=== PATIENT | male | born 1955 | race African-American/Black ===

== ENCOUNTER 2019-07-07 18:35 | Emergency (ER) | payer MEDICAID, OTHER ==
[~2019-07-07] VITALS: Ht 165.1 cm; Wt 80.0 kg
[~2019-07-07 18:35] MED LIST: ISOS10TA2 GT; KALET2 PO; KDUR10 PO; METO25TA6 PO; PREN-88 PO; RALT400T PO; TRUV PO; [UNRECOGNIZED DRUG - CODE] PO; [UNRECOGNIZED DRUG - OTHER]
[2019-07-07 18:47] VITALS: BP 146/114
[2019-07-07] MEDS ORDERED: IBUPROFEN 600MG TABLET PO ONE (19:15)
== END 2019-07-07 20:38 | disposition home or self-care (01) ==
LOC: ER 18:35
DX: S93.491A Sprain of other ligament of right ankle, initial encounter (principal); W01.0XXA Fall on same level from slipping, tripping and stumbling without subsequent striking against object, initial encounter; Y93.89 Activity, other specified; Y92.018 Other place in single-family (private) house as the place of occurrence of the external cause
CPT/HCPCS: 73610; 99283

== ENCOUNTER 2019-09-04 11:36 | Inpatient (IN) | payer MEDICAID ==
[~2019-09-04] VITALS: Ht 180.3 cm; Wt 70.8 kg
[2019-09-04] MEDS ORDERED: SODIUM CHLORIDE 0.9% 1,000 ML IV ONE (12:01)
[2019-09-04] MEDS ORDERED: LEVETIRACETAM 1000MG/100ML 100 ML IV ONE (12:15)
[2019-09-04 12:39] LABS: BASOPHILS % 0.3 % (0.0-2.0); EOSINOPHILS % 3.3 % (0.0-5.0); HEMATOCRIT. 46.9 % (42.0-52.0); HEMOGLOBIN. 15.9 g/dL (14.0-18.0); LYMPHOCYTES % 37.8 % (20.0-50.0); MEAN CORPUSCULAR HEMOGLOBIN 30.8 pg (28.0-32.0); MEAN CORPUSCULAR VOLUME 90.7 fL (80.0-94.0); MEAN PLATELET VOLUME 9.8 fl (7.4-10.4); MONOCYTES % 8.9 % (2.0-8.0); NEUTROPHILS % 49.7 % (40.0-76.0); PLATELET 213 x1000/uL (130-400); RED BLOOD CELL COUNT 5.17 mill/uL (4.7-6.1); RED CELL DISTRIBUTION WIDTH 13.6 % (11.6-14.6)
[2019-09-04 12:40] LABS: CHLORIDE 109 mEq/L (98-107)
[2019-09-04 12:44] LABS: ETHANOL BLOOD < 10 mg/dL
[2019-09-04 13:02] LABS: CREATINE KINASE 68 IU/L (39-308)
[2019-09-04] MEDS ORDERED: ACETAMINOPHEN 325MG TABLET PO PRN ×2 (15:00)
[2019-09-04] MEDS ORDERED: ONDANSETRON HCL 4MG/2ML INJ IV PRN (15:00)
[2019-09-04] MEDS ORDERED: LORAZEPAM 2MG/ML CPJ IV PRN (15:00)
[2019-09-04] MEDS ORDERED: IPRATROPIUM/ALBUTEROL 0.5-3(2.5)MG/3ML NEB ORI PRN (15:00)
[2019-09-04] MEDS ORDERED: DOCUSATE SODIUM 100MG CAPSULE PO PRN (15:00)
[2019-09-04] MEDS ORDERED: CLONIDINE 0.1MG TABLET PO PRN (15:00)
[2019-09-04] MEDS ORDERED: NITROGLYCERIN 0.4MG TABLET SL SL PRN (15:00)
[2019-09-04] MEDS ORDERED: DEXT 5%/LACTATED RINGERS 1,000 ML IV SCH (15:00)
[2019-09-04 15:17] LABS: CLARITY URINE CLEAR (CLEAR); COLOR URINE YELLOW (YELLOW); KETONES URINE NEGATIVE (NEGATIVE); LEUKOCYTE ESTERASE URINE NEGATIVE (NEGATIVE); NITRITE URINE NEGATIVE (NEGATIVE); OCCULT BLOOD URINE TRACE (NEGATIVE); PH URINE 6.5 (4.5-8.0); PROTEIN URINE NEGATIVE (NEGATIVE); UROBILINOGEN URINE 0.2 E.U./dL (0.2-1.0)
[2019-09-04 15:37] LABS: *BARBITURATES SCREEN URINE NEGATIVE (NEGATIVE); *BENZODIAZEPINES SCREEN URINE NEGATIVE (NEGATIVE)
[2019-09-04 15:38] LABS: *AMPHETAMINES SCREEN URINE NEGATIVE (NEGATIVE); *COCAINE SCREEN URINE NEGATIVE (NEGATIVE); CANNABINOID URINE SCREEN PRESUMTIVE POSITIVE (NEGATIVE); METHADONE URINE SCREEN NEGATIVE (NEGATIVE); OPIATES URINE SCREEN NEGATIVE (NEGATIVE); PHENCYCLIDINE URINE SCREEN NEGATIVE (NEGATIVE)
[2019-09-04] MEDS: DEXT 5%/LACTATED RINGERS 1,000 ML IV SCH (16:45)
[2019-09-04] MEDS ORDERED: MORPHINE SULFATE 2 MG/ML CPJ (NOT FOR IM USE) IV PRN (16:45)
[2019-09-04] MEDS ORDERED: NICARDIPINE 100 MG in SODIUM CHLORIDE 0.9% 60 ML IV PRN (17:00)
[2019-09-04] MEDS: LEVETIRACETAM 500MG PREMIX 100 ML IV SCH ×2 (21:01→22:39)
[2019-09-05] VITALS (64 sets, daily range): BP systolic 94–191; BP diastolic 37–142
[2019-09-05] MEDS: DEXT 5%/LACTATED RINGERS 1,000 ML IV SCH (00:24)
[2019-09-05] MEDS: AMLODIPINE 2.5MG TABLET PO SCH (09:59)
[2019-09-05] MEDS: PANTOPRAZOLE SODIUM 40 MG/VIAL IV SCH (09:59)
[2019-09-05] MEDS: LEVETIRACETAM 500MG PREMIX 100 ML IV SCH ×2 (11:21→20:55)
[2019-09-05] MEDS ORDERED: DOLU1TAB MT (14:33)
[2019-09-05] MEDS ORDERED: ATOR-2 MT (14:33)
[2019-09-05] MEDS ORDERED: AMLO10TA80 MT (14:34)
[2019-09-05] MEDS: ATORVASTATIN CALCIUM 10MG TABLET PO SCH (20:56)
[2019-09-06] MEDS: DEXT 5%/LACTATED RINGERS 1,000 ML IV SCH ×2 (02:05→19:00)
[2019-09-06 04:00] VITALS: BP 121/86
[2019-09-06 08:00] VITALS: BP 122/76
[2019-09-06] MEDS: PANTOPRAZOLE SODIUM 40 MG/VIAL IV SCH (08:36)
[2019-09-06] MEDS: LEVETIRACETAM 500MG PREMIX 100 ML IV SCH ×2 (08:36→20:50)
[2019-09-06] MEDS ORDERED: BUPR-43 PO (14:49)
[2019-09-06] MEDS ORDERED: BICT1TAB PO (14:49)
[2019-09-06] MEDS ORDERED: EMTR1TAB12 MT (14:49)
[2019-09-06] MEDS ORDERED: CHOL200077 MT (14:49)
[2019-09-06] MEDS ORDERED: TOPUD MT (14:49)
[2019-09-06] MEDS ORDERED: DARU1TAB MT (14:49)
[2019-09-06] MEDS ORDERED: DOLU1TAB MT (14:49)
[2019-09-06] MEDS: JULUCA PO SCH (18:05)
[2019-09-06] MEDS: [UNRECOGNIZED DRUG - OTHER] PO SCH (18:07)
[2019-09-06] MEDS: PREZCOBIX PO SCH (18:08)
[2019-09-06 20:00] VITALS: BP 147/97
[2019-09-06] MEDS: ATORVASTATIN CALCIUM 10MG TABLET PO SCH (20:48)
[2019-09-06] MEDS: AMLODIPINE 2.5MG TABLET PO SCH (20:48)
[2019-09-07] VITALS: BP 154/92
[2019-09-07 04:00] VITALS: BP 122/70
[2019-09-07 08:00] VITALS: BP 102/67
[2019-09-07] MEDS: AMLODIPINE 2.5MG TABLET PO SCH ×2 (09:00→21:04)
[2019-09-07] MEDS: PANTOPRAZOLE SODIUM 40 MG/VIAL IV SCH (09:23)
[2019-09-07] MEDS: LEVETIRACETAM 500MG PREMIX 100 ML IV SCH ×2 (09:23→21:04)
[2019-09-07] MEDS: PREZCOBIX PO SCH (09:24)
[2019-09-07] MEDS: JULUCA PO SCH (09:24)
[2019-09-07] MEDS: [UNRECOGNIZED DRUG - OTHER] PO SCH (09:25)
[2019-09-07 12:00] VITALS: BP 135/87
[2019-09-07] MEDS: DEXT 5%/LACTATED RINGERS 1,000 ML IV SCH (12:12)
[2019-09-07 16:00] VITALS: BP 141/88
[2019-09-07] MEDS ORDERED: IOHEXOL-350 100 ML BOTTLE ONE (18:35)
[2019-09-07 20:00] VITALS: BP 141/85
[2019-09-07] MEDS: ATORVASTATIN CALCIUM 10MG TABLET PO SCH (21:04)
[2019-09-07] MEDS: FAMOTIDINE 20MG TABLET PO SCH (21:04)
[2019-09-08] VITALS: BP 147/93
[2019-09-08] MEDS: DEXT 5%/LACTATED RINGERS 1,000 ML IV SCH ×2 (01:29→20:09)
[2019-09-08 04:00] VITALS: BP 134/86
[2019-09-08 08:00] VITALS: BP 112/82
[2019-09-08] MEDS: LEVETIRACETAM 500MG PREMIX 100 ML IV SCH ×2 (08:04→21:04)
[2019-09-08] MEDS: FAMOTIDINE 20MG TABLET PO SCH ×2 (08:04→21:04)
[2019-09-08] MEDS: AMLODIPINE 2.5MG TABLET PO SCH ×2 (08:04→21:05)
[2019-09-08] MEDS: JULUCA PO SCH (09:00)
[2019-09-08] MEDS: PREZCOBIX PO SCH (09:00)
[2019-09-08] MEDS: [UNRECOGNIZED DRUG - OTHER] PO SCH (09:00)
[2019-09-08 16:00] VITALS: BP 148/78
[2019-09-08 20:00] VITALS: BP 132/75
[2019-09-08] MEDS: ATORVASTATIN CALCIUM 10MG TABLET PO SCH (21:04)
[2019-09-09] VITALS: BP 157/88
[2019-09-09 04:00] VITALS: BP 156/84
[2019-09-09 08:00] VITALS: BP 127/85
[2019-09-09] MEDS: LEVETIRACETAM 500MG PREMIX 100 ML IV SCH ×2 (09:45→21:47)
[2019-09-09] MEDS: AMLODIPINE 2.5MG TABLET PO SCH ×2 (09:46→22:12)
[2019-09-09] MEDS: JULUCA PO SCH (09:47)
[2019-09-09] MEDS: PREZCOBIX PO SCH (09:47)
[2019-09-09] MEDS: [UNRECOGNIZED DRUG - OTHER] PO SCH (09:47)
[2019-09-09] MEDS: DEXT 5%/LACTATED RINGERS 1,000 ML IV SCH (09:48)
[2019-09-09] MEDS: FAMOTIDINE 20MG TABLET PO SCH ×2 (09:59→22:15)
[2019-09-09 12:00] VITALS: BP 115/81
[2019-09-09 16:00] VITALS: BP_SYST 133; BP_SYST 166; BP_DIAS 67; BP_DIAS 89
[2019-09-09 20:00] VITALS: BP 124/87
[2019-09-09] MEDS: ATORVASTATIN CALCIUM 10MG TABLET PO SCH (22:12)
[2019-09-10] VITALS (7 sets, daily range): BP systolic 122–143; BP diastolic 77–109
[2019-09-10] MEDS: DEXT 5%/LACTATED RINGERS 1,000 ML IV SCH (04:45)
[2019-09-10 06:48] LABS: CHLORIDE 107 mEq/L (98-107)
[2019-09-10 06:51] LABS: BASOPHILS % 0.7 % (0.0-2.0); EOSINOPHILS % 2.4 % (0.0-5.0); HEMATOCRIT. 45.8 % (42.0-52.0); HEMOGLOBIN. 15.7 g/dL (14.0-18.0); LYMPHOCYTES % 39.3 % (20.0-50.0); MEAN CORPUSCULAR HEMOGLOBIN 31.1 pg (28.0-32.0); MEAN CORPUSCULAR VOLUME 90.5 fL (80.0-94.0); MEAN PLATELET VOLUME 10.1 fl (7.4-10.4); MONOCYTES % 7.8 % (2.0-8.0); NEUTROPHILS % 49.8 % (40.0-76.0); PLATELET 175 x1000/uL (130-400); RED BLOOD CELL COUNT 5.06 mill/uL (4.7-6.1); RED CELL DISTRIBUTION WIDTH 13.4 % (11.6-14.6)
[2019-09-10 06:53] LABS: PHOSPHORUS 3.3 mg/dL (2.5-4.9)
[2019-09-10 06:54] LABS: TOTAL IRON BINDING CAPACITY 333 ug/dL (250-450)
[2019-09-10 07:02] LABS: FOLIC ACID (FOLATE) SERUM 8.1 ng/mL (>5.38)
[2019-09-10] MEDS: JULUCA PO SCH (10:29)
[2019-09-10] MEDS: [UNRECOGNIZED DRUG - OTHER] PO SCH (10:29)
[2019-09-10] MEDS: PREZCOBIX PO SCH (10:30)
[2019-09-10] MEDS: AMLODIPINE 2.5MG TABLET PO SCH ×2 (10:30→21:35)
[2019-09-10] MEDS: FAMOTIDINE 20MG TABLET PO SCH ×2 (10:30→21:34)
[2019-09-10] MEDS: LEVETIRACETAM 500MG PREMIX 100 ML IV SCH ×2 (10:31→21:34)
[2019-09-10] MEDS ORDERED: MAGNESIUM OXIDE 400MG TABLET PO SCH (15:00)
[2019-09-10] MEDS: ATORVASTATIN CALCIUM 10MG TABLET PO SCH (21:34)
[2019-09-13 13:06] LABS: 25-HYDROXY VITAMIN D3 9.3 ng/mL (.)
== END 2019-09-10 22:40 | DRG 44 ==
LOC: ER 11:56 → EDBEDREQ 12:51 → MICUSO 14:56 → EDBEDREQTM 15:08 → EDBEDREQSVC 15:08 → EDBEDREQ 15:08 → CVICU 09-05 → 5WST 09-05 23:27
PROVIDERS: ADMIT Internal Medicine; ATTEND Internal Medicine
DX: I61.8 Other nontraumatic intracerebral hemorrhage (principal); I63.81 Other cerebral infarction due to occlusion or stenosis of small artery; G92 Toxic encephalopathy; G82.50 Quadriplegia, unspecified; R13.10 Dysphagia, unspecified; I10 Essential (primary) hypertension; E11.9 Type 2 diabetes mellitus without complications; F12.90 Cannabis use, unspecified, uncomplicated; R47.01 Aphasia; G40.909 Epilepsy, unspecified, not intractable, without status epilepticus; R26.9 Unspecified abnormalities of gait and mobility; R00.1 Bradycardia, unspecified; R47.1 Dysarthria and anarthria; I25.2 Old myocardial infarction; Z82.49 Family history of ischemic heart disease and other diseases of the circulatory system; Z71.51 Drug abuse counseling and surveillance of drug abuser; Z79.899 Other long term (current) drug therapy
CPT/HCPCS: 36415; 70496; 70551; 71045; 80053; 80061; 80305; 80320; 81003; 82306; 82550; 82607; 82746; 82962; 83036; 83540; 83550; 83735; 83880; 84100; 84443; 84484; 85025; 92523; 92610; 93005; 93306; 93880; 93970; 97116; 97162; 97166; 97530; 97535; 99291; C9113; J1953; J3490; J7030; J7050; J7121; Q9967; G0480

== ENCOUNTER 2019-09-10 22:40 | Inpatient (IN) | payer MEDICAID ==
[~2019-09-10] VITALS: Ht 180.3 cm; Wt 70.8 kg
[2019-09-10 22:40] VITALS: BP 143/86
[~2019-09-10 22:40] MED LIST changes: +AMLO10TA80 MT; +ATOR-2 MT; +BICT1TAB PO; +BUPR-43 PO; +CHOL200077 MT; +DARU1TAB MT; +DOLU1TAB MT; +EMTR1TAB12 MT; +TOPUD MT
[2019-09-10 23:00] VITALS: BP 143/86
[2019-09-11] MEDS ORDERED: CLONIDINE 0.1MG TABLET PO PRN
[2019-09-11] MEDS ORDERED: IPRATROPIUM/ALBUTEROL 0.5-3(2.5)MG/3ML NEB HHN PRN
[2019-09-11] MEDS ORDERED: ONDANSETRON HCL 4MG TABLET PO PRN
[2019-09-11] MEDS ORDERED: NITROGLYCERIN 0.4MG TABLET SL SL PRN
[2019-09-11] MEDS ORDERED: ACETAMINOPHEN 325MG TABLET PO PRN ×2
[2019-09-11 06:26] LABS: CHLORIDE 107 mEq/L (98-107)
[2019-09-11 06:27] LABS: HEMATOCRIT. 46.9 % (42.0-52.0); HEMOGLOBIN. 15.8 g/dL (14.0-18.0); MEAN CORPUSCULAR HEMOGLOBIN 30.7 pg (28.0-32.0); MEAN CORPUSCULAR VOLUME 91.1 fL (80.0-94.0); MEAN PLATELET VOLUME 9.3 fl (7.4-10.4); PLATELET 194 x1000/uL (130-400); RED BLOOD CELL COUNT 5.15 mill/uL (4.7-6.1); RED CELL DISTRIBUTION WIDTH 13.2 % (11.6-14.6)
[2019-09-11] MEDS: MAGNESIUM OXIDE 400MG TABLET PO SCH ×2 (08:59→20:40)
[2019-09-11] MEDS: FAMOTIDINE 20MG TABLET PO SCH ×2 (08:59→20:40)
[2019-09-11] MEDS ORDERED: NON FORMULARY PATIENT HOME MED XX SCH ×2 (09:00)
[2019-09-11] MEDS: LEVETIRACETAM 500MG TABLET PO SCH ×2 (09:00→20:40)
[2019-09-11] MEDS ORDERED: NON FORMULARY PATIENT HOME MED PO SCH (09:00)
[2019-09-11] MEDS: AMLODIPINE 2.5MG TABLET PO SCH (09:00)
[2019-09-11] MEDS: JULUCA PO SCH (10:13)
[2019-09-11] MEDS: PREZCOBIX PO SCH (10:14)
[2019-09-11] MEDS: BIKTARVY PO SCH (10:14)
[2019-09-11] MEDS: LACTULOSE 20G/30ML UDC PO SCH ×3 (13:07→20:00)
[2019-09-11 20:00] VITALS: BP 120/80
[2019-09-11 20:36] LABS: ATYPICAL LYMPHOCYTES 9; NUCLEATED RED BLOOD CELLS 3 /100 WBC
[2019-09-11 20:37] LABS: PLATELET ESTIMATE NORMAL
[2019-09-11] MEDS: ATORVASTATIN CALCIUM 10MG TABLET PO SCH (20:40)
[2019-09-12 08:17] VITALS: BP 105/60
[2019-09-12] MEDS: AMLODIPINE 2.5MG TABLET PO SCH (09:00)
[2019-09-12] MEDS: MAGNESIUM OXIDE 400MG TABLET PO SCH ×2 (09:16→21:24)
[2019-09-12] MEDS: LEVETIRACETAM 500MG TABLET PO SCH ×2 (09:16→21:23)
[2019-09-12] MEDS: PREZCOBIX PO SCH (09:17)
[2019-09-12] MEDS: BIKTARVY PO SCH (09:17)
[2019-09-12] MEDS: JULUCA PO SCH (09:17)
[2019-09-12] MEDS: FAMOTIDINE 20MG TABLET PO SCH ×2 (09:17→21:23)
[2019-09-12] MEDS: NYSTATIN 100,000 UNITS/ML 5ML UDC SSW SCH (16:56)
[2019-09-12 20:00] VITALS: BP 141/92
[2019-09-12] MEDS: ATORVASTATIN CALCIUM 10MG TABLET PO SCH (21:24)
[2019-09-13] MEDS: NYSTATIN 100,000 UNITS/ML 5ML UDC SSW SCH ×4 (00:46→17:24)
[2019-09-13 08:00] VITALS: BP 103/60
[2019-09-13] MEDS: FAMOTIDINE 20MG TABLET PO SCH ×2 (10:24→22:31)
[2019-09-13] MEDS: DOCUSATE SODIUM 100MG CAPSULE PO PRN (10:24)
[2019-09-13] MEDS: LEVETIRACETAM 500MG TABLET PO SCH ×2 (10:24→22:32)
[2019-09-13] MEDS: AMLODIPINE 2.5MG TABLET PO SCH (10:25)
[2019-09-13] MEDS: MAGNESIUM OXIDE 400MG TABLET PO SCH ×2 (10:30→22:31)
[2019-09-13] MEDS: JULUCA PO SCH (10:33)
[2019-09-13] MEDS: PREZCOBIX PO SCH (10:34)
[2019-09-13] MEDS: BIKTARVY PO SCH (10:34)
[2019-09-13 20:00] VITALS: BP 130/85
[2019-09-13] MEDS: ATORVASTATIN CALCIUM 10MG TABLET PO SCH (22:32)
[2019-09-14] MEDS: NYSTATIN 100,000 UNITS/ML 5ML UDC SSW SCH ×4 (00:21→17:10)
[2019-09-14 07:15] LABS: BASOPHILS % 0.4 % (0.0-2.0); EOSINOPHILS % 1.9 % (0.0-5.0); HEMATOCRIT. 48.6 % (42.0-52.0); HEMOGLOBIN. 16.4 g/dL (14.0-18.0); LYMPHOCYTES % 42.1 % (20.0-50.0); MEAN CORPUSCULAR HEMOGLOBIN 30.6 pg (28.0-32.0); MEAN CORPUSCULAR VOLUME 90.9 fL (80.0-94.0); MEAN PLATELET VOLUME 9.4 fl (7.4-10.4); MONOCYTES % 8.8 % (2.0-8.0); NEUTROPHILS % 46.8 % (40.0-76.0); PLATELET 223 x1000/uL (130-400); RED BLOOD CELL COUNT 5.35 mill/uL (4.7-6.1); RED CELL DISTRIBUTION WIDTH 13.4 % (11.6-14.6)
[2019-09-14 07:25] LABS: CHLORIDE 104 mEq/L (98-107)
[2019-09-14 08:14] VITALS: BP 138/88
[2019-09-14] MEDS: FAMOTIDINE 20MG TABLET PO SCH ×2 (09:59→21:56)
[2019-09-14] MEDS: LEVETIRACETAM 500MG TABLET PO SCH ×2 (09:59→21:56)
[2019-09-14] MEDS: AMLODIPINE 2.5MG TABLET PO SCH (10:00)
[2019-09-14] MEDS: MAGNESIUM OXIDE 400MG TABLET PO SCH ×2 (10:00→21:55)
[2019-09-14] MEDS: PREZCOBIX PO SCH (10:05)
[2019-09-14] MEDS: BIKTARVY PO SCH (10:05)
[2019-09-14] MEDS: JULUCA PO SCH (10:05)
[2019-09-14] MEDS ORDERED: BISACODYL 10MG SUPP PR NR (12:00)
[2019-09-14] MEDS: LACTULOSE 20G/30ML UDC PO SCH ×3 (12:03→17:10)
[2019-09-14 20:00] VITALS: BP 116/89
[2019-09-14] MEDS: ATORVASTATIN CALCIUM 10MG TABLET PO SCH (21:55)
[2019-09-15] MEDS: NYSTATIN 100,000 UNITS/ML 5ML UDC SSW SCH ×4 (05:28→17:29)
[2019-09-15 08:00] VITALS: BP 130/89
[2019-09-15] MEDS: LEVETIRACETAM 500MG TABLET PO SCH ×3 (08:48→22:03)
[2019-09-15] MEDS: MAGNESIUM OXIDE 400MG TABLET PO SCH ×2 (08:48→21:52)
[2019-09-15] MEDS: FAMOTIDINE 20MG TABLET PO SCH ×2 (08:48→21:52)
[2019-09-15] MEDS: BIKTARVY PO SCH (08:49)
[2019-09-15] MEDS: AMLODIPINE 2.5MG TABLET PO SCH (08:49)
[2019-09-15] MEDS: PREZCOBIX PO SCH (08:50)
[2019-09-15] MEDS: JULUCA PO SCH (08:50)
[2019-09-15 20:00] VITALS: BP 119/83
[2019-09-15] MEDS: ATORVASTATIN CALCIUM 10MG TABLET PO SCH (21:52)
[2019-09-16] MEDS: NYSTATIN 100,000 UNITS/ML 5ML UDC SSW SCH ×4 (00:39→17:06)
[2019-09-16 08:00] VITALS: BP 116/81
[2019-09-16 08:37] VITALS: BP 106/81
[2019-09-16] MEDS: MAGNESIUM OXIDE 400MG TABLET PO SCH ×2 (08:43→21:19)
[2019-09-16] MEDS: AMLODIPINE 2.5MG TABLET PO SCH (08:44)
[2019-09-16] MEDS: FAMOTIDINE 20MG TABLET PO SCH ×2 (08:45→21:19)
[2019-09-16] MEDS: BIKTARVY PO SCH (08:45)
[2019-09-16] MEDS: PREZCOBIX PO SCH (08:45)
[2019-09-16] MEDS: LEVETIRACETAM 500MG TABLET PO SCH ×2 (08:45→21:19)
[2019-09-16] MEDS: JULUCA PO SCH (08:45)
[2019-09-16 20:00] VITALS: BP 111/84
[2019-09-16] MEDS: ATORVASTATIN CALCIUM 10MG TABLET PO SCH (21:19)
[2019-09-17] MEDS: NYSTATIN 100,000 UNITS/ML 5ML UDC SSW SCH ×5 (00:11→23:09)
[2019-09-17 08:00] VITALS: BP 130/82
[2019-09-17] MEDS: AMLODIPINE 2.5MG TABLET PO SCH (08:49)
[2019-09-17] MEDS: MAGNESIUM OXIDE 400MG TABLET PO SCH ×2 (08:49→20:48)
[2019-09-17] MEDS: LEVETIRACETAM 500MG TABLET PO SCH ×2 (08:49→20:48)
[2019-09-17] MEDS: JULUCA PO SCH (08:50)
[2019-09-17] MEDS: FAMOTIDINE 20MG TABLET PO SCH ×2 (12:21→20:48)
[2019-09-17 20:00] VITALS: BP 131/72
[2019-09-17] MEDS: ATORVASTATIN CALCIUM 10MG TABLET PO SCH (20:48)
[2019-09-18] MEDS: DOCUSATE SODIUM 100MG CAPSULE PO PRN (05:04)
[2019-09-18] MEDS: NYSTATIN 100,000 UNITS/ML 5ML UDC SSW SCH ×3 (05:05→17:35)
[2019-09-18 05:08] LABS: 25-HYDROXY VITAMIN D3 9.7 ng/mL (.)
[2019-09-18 07:28] LABS: BASOPHILS % 0.5 % (0.0-2.0); EOSINOPHILS % 1.6 % (0.0-5.0); HEMATOCRIT. 46.8 % (42.0-52.0); HEMOGLOBIN. 15.8 g/dL (14.0-18.0); MEAN CORPUSCULAR HEMOGLOBIN 30.9 pg (28.0-32.0); MEAN CORPUSCULAR VOLUME 91.4 fL (80.0-94.0); MONOCYTES % 9.4 % (2.0-8.0); NEUTROPHILS % 48.5 % (40.0-76.0); PLATELET 223 x1000/uL (130-400); RED BLOOD CELL COUNT 5.12 mill/uL (4.7-6.1); RED CELL DISTRIBUTION WIDTH 13.3 % (11.6-14.6)
[2019-09-18 07:43] LABS: CHLORIDE 104 mEq/L (98-107)
[2019-09-18 08:00] VITALS: BP 125/87
[2019-09-18] MEDS: LEVETIRACETAM 500MG TABLET PO SCH ×2 (09:30→20:43)
[2019-09-18] MEDS: MAGNESIUM OXIDE 400MG TABLET PO SCH ×2 (09:30→20:43)
[2019-09-18] MEDS: AMLODIPINE 2.5MG TABLET PO SCH (09:31)
[2019-09-18] MEDS: FAMOTIDINE 20MG TABLET PO SCH ×2 (09:31→20:43)
[2019-09-18] MEDS: JULUCA PO SCH (09:48)
[2019-09-18 11:14] VITALS: BP 125/87
[2019-09-18] MEDS ORDERED: NA PHOS,M-B/NA PHOS,DI-BA ENEMA 118ML PR PRN (17:30)
[2019-09-18] MEDS: BISACODYL 5MG TABLET PO PRN (17:35)
[2019-09-18] MEDS: ERGOCALCIFEROL 50000UNITS CAPSULE PO SCH ×3 (17:45→19:04)
[2019-09-18] MEDS: LACTULOSE 20G/30ML UDC PO PRN (18:23)
[2019-09-18 20:00] VITALS: BP 124/86
[2019-09-18] MEDS: ATORVASTATIN CALCIUM 10MG TABLET PO SCH (20:43)
[2019-09-19] MEDS: NYSTATIN 100,000 UNITS/ML 5ML UDC SSW SCH ×4 (05:41→18:00)
[2019-09-19 07:30] VITALS: BP 112/79
[2019-09-19] MEDS: MAGNESIUM OXIDE 400MG TABLET PO SCH ×2 (08:33→21:13)
[2019-09-19] MEDS: LEVETIRACETAM 500MG TABLET PO SCH ×2 (08:33→21:13)
[2019-09-19] MEDS: FAMOTIDINE 20MG TABLET PO SCH ×2 (08:34→21:13)
[2019-09-19] MEDS: AMLODIPINE 2.5MG TABLET PO SCH (08:34)
[2019-09-19] MEDS: JULUCA PO SCH (08:35)
[2019-09-19] MEDS: LACTULOSE 20G/30ML UDC PO PRN (16:13)
[2019-09-19 20:00] VITALS: BP 125/84
[2019-09-19] MEDS: ATORVASTATIN CALCIUM 10MG TABLET PO SCH (21:13)
[2019-09-20] MEDS ORDERED: NYSTATIN 100,000 UNITS/ML 5ML UDC SSW SCH
[2019-09-20 07:21] LABS: BASOPHILS % 0.4 % (0.0-2.0); HEMATOCRIT. 45.9 % (42.0-52.0); HEMOGLOBIN. 15.5 g/dL (14.0-18.0); LYMPHOCYTES % 40.3 % (20.0-50.0); MEAN CORPUSCULAR HEMOGLOBIN 30.7 pg (28.0-32.0); MEAN CORPUSCULAR VOLUME 91.1 fL (80.0-94.0); MEAN PLATELET VOLUME 9.8 fl (7.4-10.4); MONOCYTES % 9.2 % (2.0-8.0); NEUTROPHILS % 48.1 % (40.0-76.0); PLATELET 227 x1000/uL (130-400); RED BLOOD CELL COUNT 5.04 mill/uL (4.7-6.1); RED CELL DISTRIBUTION WIDTH 13.1 % (11.6-14.6)
[2019-09-20 07:28] LABS: CHLORIDE 102 mEq/L (98-107)
[2019-09-20 08:20] VITALS: BP 137/93
[2019-09-20] MEDS: AMLODIPINE 2.5MG TABLET PO SCH (08:55)
[2019-09-20] MEDS: LEVETIRACETAM 500MG TABLET PO SCH ×2 (08:55→21:40)
[2019-09-20] MEDS: FAMOTIDINE 20MG TABLET PO SCH ×2 (08:55→21:41)
[2019-09-20] MEDS: MAGNESIUM OXIDE 400MG TABLET PO SCH ×2 (08:55→21:40)
[2019-09-20] MEDS: JULUCA PO SCH (08:56)
[2019-09-20] MEDS: LACTULOSE 20G/30ML UDC PO SCH ×3 (13:00→17:56)
[2019-09-20 20:00] VITALS: BP 136/76
[2019-09-20] MEDS: ATORVASTATIN CALCIUM 10MG TABLET PO SCH (21:40)
[2019-09-21 08:00] VITALS: BP 140/99
[2019-09-21 08:01] VITALS: BP 140/99
[2019-09-21] MEDS: MAGNESIUM OXIDE 400MG TABLET PO SCH ×2 (08:22→21:44)
[2019-09-21] MEDS: FAMOTIDINE 20MG TABLET PO SCH ×2 (08:22→21:44)
[2019-09-21] MEDS: JULUCA PO SCH (08:23)
[2019-09-21] MEDS: LEVETIRACETAM 500MG TABLET PO SCH ×2 (08:23→21:44)
[2019-09-21] MEDS: AMLODIPINE 2.5MG TABLET PO SCH (08:23)
[2019-09-21 20:00] VITALS: BP 113/74
[2019-09-21] MEDS: ATORVASTATIN CALCIUM 10MG TABLET PO SCH (21:44)
[2019-09-22] MEDS: BISACODYL 5MG TABLET PO PRN (06:05)
[2019-09-22 08:08] VITALS: BP_SYST 91
[2019-09-22] MEDS: JULUCA PO SCH (09:50)
[2019-09-22] MEDS: LEVETIRACETAM 500MG TABLET PO SCH ×2 (09:51→21:51)
[2019-09-22] MEDS: FAMOTIDINE 20MG TABLET PO SCH ×2 (09:51→21:51)
[2019-09-22] MEDS: MAGNESIUM OXIDE 400MG TABLET PO SCH ×2 (09:51→21:50)
[2019-09-22] MEDS: AMLODIPINE 2.5MG TABLET PO SCH (09:52)
[2019-09-22 20:00] VITALS: BP 155/87
[2019-09-22] MEDS: ATORVASTATIN CALCIUM 10MG TABLET PO SCH (21:51)
[2019-09-23 06:47] LABS: CHLORIDE 106 mEq/L (98-107)
[2019-09-23 06:50] LABS: BASOPHILS % 0.4 % (0.0-2.0); EOSINOPHILS % 1.7 % (0.0-5.0); HEMATOCRIT. 44.9 % (42.0-52.0); HEMOGLOBIN. 15.2 g/dL (14.0-18.0); LYMPHOCYTES % 37.8 % (20.0-50.0); MEAN CORPUSCULAR HEMOGLOBIN 30.8 pg (28.0-32.0); MEAN CORPUSCULAR VOLUME 91.3 fL (80.0-94.0); MEAN PLATELET VOLUME 9.9 fl (7.4-10.4); NEUTROPHILS % 51.1 % (40.0-76.0); PLATELET 227 x1000/uL (130-400); RED BLOOD CELL COUNT 4.92 mill/uL (4.7-6.1); RED CELL DISTRIBUTION WIDTH 13.5 % (11.6-14.6)
[2019-09-23 06:53] LABS: PHOSPHORUS 3.1 mg/dL (2.5-4.9)
[2019-09-23 07:59] VITALS: BP 119/79
[2019-09-23 08:18] VITALS: BP 119/79
[2019-09-23] MEDS: MAGNESIUM OXIDE 400MG TABLET PO SCH ×2 (08:33→21:00)
[2019-09-23] MEDS: FAMOTIDINE 20MG TABLET PO SCH ×2 (08:33→21:01)
[2019-09-23] MEDS: AMLODIPINE 2.5MG TABLET PO SCH (08:33)
[2019-09-23] MEDS: LEVETIRACETAM 500MG TABLET PO SCH ×2 (08:33→21:00)
[2019-09-23] MEDS: JULUCA PO SCH (08:34)
[2019-09-23 20:00] VITALS: BP 114/82
[2019-09-23] MEDS: ATORVASTATIN CALCIUM 10MG TABLET PO SCH (21:00)
[2019-09-24 07:43] VITALS: BP 134/82
[2019-09-24] MEDS: LEVETIRACETAM 500MG TABLET PO SCH (08:57)
[2019-09-24] MEDS: JULUCA PO SCH (08:58)
[2019-09-24] MEDS: MAGNESIUM OXIDE 400MG TABLET PO SCH (08:58)
[2019-09-24] MEDS: AMLODIPINE 2.5MG TABLET PO SCH (08:58)
[2019-09-24] MEDS: FAMOTIDINE 20MG TABLET PO SCH (08:58)
[2019-09-24 11:01] VITALS: BP 134/82
== END 2019-09-24 12:40 | disposition home health service (06) | DRG 45 ==
PROVIDERS: ADMIT Physical Medicine & Rehabilitation Spinal Cord Injury Medicine; ATTEND Internal Medicine
DX: I63.81 Other cerebral infarction due to occlusion or stenosis of small artery (principal); I61.8 Other nontraumatic intracerebral hemorrhage; G93.40 Encephalopathy, unspecified; G82.50 Quadriplegia, unspecified; R13.10 Dysphagia, unspecified; E11.9 Type 2 diabetes mellitus without complications; B35.1 Tinea unguium; G40.909 Epilepsy, unspecified, not intractable, without status epilepticus; R47.01 Aphasia; I10 Essential (primary) hypertension; E78.5 Hyperlipidemia, unspecified; E78.00 Pure hypercholesterolemia, unspecified; E55.9 Vitamin D deficiency, unspecified; L60.0 Ingrowing nail; L60.2 Onychogryphosis; L60.3 Nail dystrophy; M20.11 Hallux valgus (acquired), right foot; M20.12 Hallux valgus (acquired), left foot; R26.2 Difficulty in walking, not elsewhere classified; R53.1 Weakness; R47.1 Dysarthria and anarthria; R53.81 Other malaise; Z82.49 Family history of ischemic heart disease and other diseases of the circulatory system; Z86.73 Personal history of transient ischemic attack (TIA), and cerebral infarction without residual deficits; Z79.899 Other long term (current) drug therapy; I25.2 Old myocardial infarction; Z56.0 Unemployment, unspecified
CPT/HCPCS: 36415; 80048; 80053; 82306; 83735; 84100; 84134; 85025; 92523; 92610; 93970; 97110; 97112; 97116; 97163; 97166; 97530; 97535